=== PATIENT | male | born 1960 | race Caucasian/White ===

== ENCOUNTER 2018-03-20 08:10 | Day surgery (SDC) | payer OTHER ==
[~2018-03-20] VITALS: Ht 172.7 cm; Wt 113.4 kg
[2018-03-20] MEDS ORDERED: CEFAZOLIN SODIUM 1 GM/D5W PM 50 ML IV ONE (09:05)
[2018-03-20] MEDS ORDERED: PROPOFOL 200 MG/20 ML VIAL IV ONE (09:54)
[2018-03-20] MEDS ORDERED: ONDANSETRON 4 MG/2 ML VIAL ONE (09:54)
[2018-03-20] MEDS ORDERED: DEXAMETHASONE 4 MG/ML VIAL ONE (09:54)
[2018-03-20] MEDS ORDERED: SEVOFLURANE 250 ML BTL INH ONE (09:54)
[2018-03-20] MEDS ORDERED: fentaNYL 0.05 MG/ML VIAL ONE (10:00)
[2018-03-20] MEDS ORDERED: MEPERIDINE 50 MG/ML SYR ONE (10:00)
[2018-03-20] MEDS ORDERED: MIDAZOLAM 2 MG/2 ML VIAL ONE (10:00)
[2018-03-20] MEDS ORDERED: LACTATED RINGERS 1,000 ML IV SCH (10:26)
[2018-03-20] MEDS ORDERED: ONDANSETRON 4 MG/2 ML VIAL IVP PRN (10:30)
[2018-03-20] MEDS ORDERED: MEPERIDINE 25 MG/ML SYR IVP PRN (10:30)
[2018-03-20] MEDS ORDERED: diphenhydrAMINE 50 MG/ML VIAL IVP PRN (10:30)
[2018-03-20] MEDS ORDERED: HYDROmorphone 1 MG/ML AMP IVP PRN ×2 (10:30→11:35)
[2018-03-20] MEDS: BUPIVACAINE-MPF/EPI 0.25% 30 ML VIAL INJ ONE (10:40)
[2018-03-20] MEDS ORDERED: BUPIVACAINE-MPF 0.5% 30 ML VIAL INJ ONE (11:02)
[2018-03-20] MEDS ORDERED: LIDOCAINE 2% 100 MG/5 ML UJET TP ONE (11:14)
[2018-03-20] MEDS ORDERED: NACL 0.9% 1,000 ML IV SCH (11:31)
[2018-03-20] MEDS ORDERED: MORPHINE SULFATE 4 MG/ML SYR IV PRN (11:35)
[2018-03-20] MEDS ORDERED: MORPHINE SULFATE 2 MG/ML SYR IVP PRN (11:35)
[2018-03-20] MEDS ORDERED: ONDANSETRON 4 MG/2 ML VIAL IV PRN (11:35)
[2018-03-20] MEDS ORDERED: HYDROcodone/APAP 5/325 MG 1 TAB TAB PO PRN (11:35)
== END 2018-03-20 12:50 | disposition home or self-care (01) ==
LOC: MOR 08:10 → MMU 08:11 → MOR 12:50
PROVIDERS: ATTEND Surgery
DX: K60.5 Anorectal fistula (principal); D12.2 Benign neoplasm of ascending colon; K57.30 Diverticulosis of large intestine without perforation or abscess without bleeding; E66.9 Obesity, unspecified; Z68.30 Body mass index [BMI] 30.0-30.9, adult
CPT/HCPCS: 45380; 46270; 71045; J0690; J1100; J2175; J2250; J2405; J2704; J3010; J3490; J7030; J7120

== ENCOUNTER 2018-05-28 06:21 | Day surgery (SDC) | payer OTHER ==
[~2018-05-28] VITALS: Ht 172.7 cm; Wt 113.4 kg
[2018-05-28] MEDS ORDERED: BUPIVACAINE-MPF/EPI 0.25% 30 ML VIAL INJ ONE (07:38)
[2018-05-28] MEDS ORDERED: LIDOCAINE/EPI MPF 1%1:200000 30 ML VIAL INJ ONE (07:38)
[2018-05-28] MEDS ORDERED: LIDOCAINE 2% 100 MG/5 ML SYR IVP ONE (07:39)
[2018-05-28] MEDS ORDERED: SEVOFLURANE 250 ML BTL INH ONE (07:39)
[2018-05-28] MEDS ORDERED: PROPOFOL 200 MG/20 ML VIAL IV ONE (07:39)
[2018-05-28] MEDS ORDERED: MIDAZOLAM 2 MG/2 ML VIAL ONE (07:43)
[2018-05-28] MEDS ORDERED: fentaNYL 0.05 MG/ML VIAL ONE (07:44)
[2018-05-28] MEDS ORDERED: HYDROmorphone 1 MG/ML AMP IVP PRN ×2 (08:10→09:20)
[2018-05-28] MEDS ORDERED: ONDANSETRON 4 MG/2 ML VIAL IVP PRN (08:10)
[2018-05-28] MEDS ORDERED: MORPHINE SULFATE 4 MG/ML SYR IV PRN (09:20)
[2018-05-28] MEDS ORDERED: MORPHINE SULFATE 2 MG/ML SYR IVP PRN (09:20)
[2018-05-28] MEDS ORDERED: HYDROcodone/APAP 5/325 MG 1 TAB TAB PO PRN (09:20)
[2018-05-28] MEDS ORDERED: ONDANSETRON 4 MG/2 ML VIAL IV PRN (09:20)
== END 2018-05-28 11:30 | disposition home or self-care (01) ==
LOC: MDS 06:21 → MMU 06:22 → EDUNIT# 07:30 → MDS 11:30
PROVIDERS: ATTEND Surgery
DX: D17.22 Benign lipomatous neoplasm of skin and subcutaneous tissue of left arm (principal); D17.1 Benign lipomatous neoplasm of skin and subcutaneous tissue of trunk; E66.9 Obesity, unspecified; F17.210 Nicotine dependence, cigarettes, uncomplicated; J45.909 Unspecified asthma, uncomplicated; I25.119 Atherosclerotic heart disease of native coronary artery with unspecified angina pectoris; D64.9 Anemia, unspecified; E11.9 Type 2 diabetes mellitus without complications; K21.9 Gastro-esophageal reflux disease without esophagitis; F03.90 Unspecified dementia, unspecified severity, without behavioral disturbance, psychotic disturbance, mood disturbance, and anxiety; Z68.38 Body mass index [BMI] 38.0-38.9, adult; Z86.73 Personal history of transient ischemic attack (TIA), and cerebral infarction without residual deficits
CPT/HCPCS: 21552; 24071; 25071; 71045; 88304; 93005; J0690; J2001; J2250; J2704; J3010; J3490; J7060; J7120

== ENCOUNTER 2018-07-17 09:04 | Day surgery (SDC) | payer OTHER ==
[~2018-07-17] VITALS: Ht 170.2 cm; Wt 116.6 kg
[2018-07-17] MEDS ORDERED: PROPOFOL 200 MG/20 ML VIAL IV ONE (11:50)
[2018-07-17] MEDS ORDERED: SEVOFLURANE 250 ML BTL INH ONE (11:50)
[2018-07-17] MEDS ORDERED: DEXAMETHASONE 4 MG/ML VIAL ONE (11:50)
[2018-07-17] MEDS ORDERED: ONDANSETRON 4 MG/2 ML VIAL ONE (11:50)
[2018-07-17] MEDS ORDERED: MIDAZOLAM 2 MG/2 ML VIAL ONE (11:57)
[2018-07-17] MEDS ORDERED: MEPERIDINE 50 MG/ML SYR ONE (11:57)
[2018-07-17] MEDS ORDERED: fentaNYL 0.05 MG/ML VIAL ONE (11:57)
[2018-07-17] MEDS ORDERED: BUPIVACAINE-MPF/EPI 0.25% 30 ML VIAL INJ ONE (12:02)
[2018-07-17] MEDS ORDERED: ONDANSETRON 4 MG/2 ML VIAL IV PRN (12:45)
[2018-07-17] MEDS ORDERED: HYDROcodone/APAP 5/325 MG 1 TAB TAB PO PRN (12:45)
[2018-07-17] MEDS ORDERED: MORPHINE SULFATE 2 MG/ML SYR IVP PRN (12:45)
[2018-07-17] MEDS ORDERED: HYDROmorphone 1 MG/ML AMP IVP PRN ×2 (12:45→12:50)
[2018-07-17] MEDS ORDERED: ACETAMINOPHEN 325 MG TAB PO PRN (12:45)
[2018-07-17] MEDS ORDERED: MORPHINE SULFATE 4 MG/ML SYR IV PRN (12:45)
[2018-07-17] MEDS ORDERED: LACTATED RINGERS 1,000 ML IV SCH (12:47)
[2018-07-17] MEDS ORDERED: ONDANSETRON 4 MG/2 ML VIAL IVP PRN (12:50)
[2018-07-17] MEDS ORDERED: MEPERIDINE 25 MG/ML SYR IVP PRN (12:50)
[2018-07-17] MEDS ORDERED: diphenhydrAMINE 50 MG/ML VIAL IVP PRN (12:50)
== END 2018-07-17 14:10 | disposition home or self-care (01) ==
LOC: MMU 09:04 → MDS 09:04
PROVIDERS: ATTEND Surgery
DX: D17.21 Benign lipomatous neoplasm of skin and subcutaneous tissue of right arm (principal); D17.1 Benign lipomatous neoplasm of skin and subcutaneous tissue of trunk; E66.9 Obesity, unspecified; J45.909 Unspecified asthma, uncomplicated; E11.9 Type 2 diabetes mellitus without complications; Z68.41 Body mass index [BMI] 40.0-44.9, adult; I25.10 Atherosclerotic heart disease of native coronary artery without angina pectoris; F17.210 Nicotine dependence, cigarettes, uncomplicated; Z98.890 Other specified postprocedural states; Z86.73 Personal history of transient ischemic attack (TIA), and cerebral infarction without residual deficits; Z79.899 Other long term (current) drug therapy
CPT/HCPCS: 22902; 22903; 25071; 71045; 88304; J0690; J1100; J2250; J2405; J2704; J3010; J3490; J7060; J7120; J2175

== ENCOUNTER 2018-09-03 11:27 | Emergency (ER) | payer OTHER ==
[~2018-09-03] VITALS: Ht 175.3 cm; Wt 113.4 kg
[2018-09-03 11:41] VITALS: BP 116/80
--- NOTE | 2018-09-03 11:45 | NUR ---
PT TAKEN IN WHEEL CHAIR TO ER BED 10
[2018-09-03] MEDS ORDERED: BACL10TA4 PO (11:50)
[2018-09-03] MEDS ORDERED: IBUP200C97 PO (11:50)
[2018-09-03] MEDS ORDERED: CARI350T PO (11:50)
[2018-09-03] MEDS ORDERED: HYDR-5092 PO (11:50)
[2018-09-03] MEDS ORDERED: NAPR-54 PO (11:50)
[2018-09-03] MEDS ORDERED: TRAZ-343 PO (11:50)
--- NOTE | 2018-09-03 11:50 | NUR ---
PATIENT PRESENTS TO ED WITH C/O ABDOMINAL PRESSURE TYPE PAIN WITH SOB X2 WKS, GETTING WORSE TODAY, REPORT N/V/D, HX--DEPRESSION, LOWER BACK PAIN . AAOX4 WITH EVEN AND STEADY GAIT; LUNGS CLEAR BL; HR EVEN AND REGULAR;DENIES N/V/D; SKIN IS PINK/WARM/DRY; PATIENT STATES PAIN OF 10/10 AT THIS TIME; VSS; PATIENT POSITIONED FOR COMFORT; HOB ELEVATED; BEDRAILS UP X2; BED DOWN. ER MD MADE AWARE OF PT STATUS.
[2018-09-03] MEDS ORDERED: NACL 0.9% 1,000 ML IV SCH (12:11)
[2018-09-03] MEDS ORDERED: KETOROLAC 15 MG/ML VIAL IVP ONE (12:15)
[2018-09-03] MEDS ORDERED: PANTOPRAZOLE 40 MG INJ VIAL IVP ONE (12:15)
[2018-09-03] MEDS ORDERED: ONDANSETRON 4 MG/2 ML VIAL IVP ONE (12:15)
[2018-09-03 12:39] LABS: BASOPHILS # (AUTO) 0.1 K/uL (0.00-0.22); BASOPHILS % (AUTO) 1.4 % (0.0-2.0); EOSINOPHILS # (AUTO) 0.2 K/uL (0-0.4); EOSINOPHILS % (AUTO) 2.1 % (0.0-4.0); HEMATOCRIT 37.1 % (36-52); HEMOGLOBIN 12.6 g/dL (12.0-18.0); LYMPHOCYTES # (AUTO) 1.1 K/uL (2.0-11.5); LYMPHOCYTES % (AUTO) 13.5 % (20.5-51.1); MEAN CORPUSCULAR HEMOGLOBIN 30 pg (27-31); MEAN CORPUSCULAR HGB CONC 34 g/dL (33-37); MEAN CORPUSCULAR VOLUME 89.2 fL (80-94); MONOCYTES # (AUTO) 0.6 K/uL (0.8-1.0); MONOCYTES % (AUTO) 7.4 % (1.7-9.3); NEUTROPHILS # (AUTO) 5.9 K/uL (1.8-7.7); NEUTROPHILS % (AUTO) 75.6 % (42.2-75.2); PLATELET COUNT (AUTO) 336 K/uL (140-450); RED BLOOD CELL COUNT(AUTO) 4.16 MIL/uL (4.20-6.10); RED CELL DISTRIBUTION WIDTH 12.8 % (11.6-13.7); WHITE BLOOD COUNT (AUTO) 7.9 K/uL (4.8-10.8)
[2018-09-03 13:05] LABS: APPEARANCE,URINE CLEAR (CLEAR); BILIRUBIN,URINE NEGATIVE (NEGATIVE); BLOOD, URINE NEGATIVE (NEGATIVE); COLOR,URINE YELLOW (YELLOW); LEUKOCYTE ESTERASE ,URINE NEGATIVE (NEGATIVE); NITRITE, URINE NEGATIVE (NEGATIVE); PH,URINE 7.5 (5.0-9.0); UGLUCOSE NEGATIVE (NEGATIVE)
[2018-09-03 13:09] LABS: ALBUMIN 3.4 g/dL (3.4-5.0); CREATININE 0.8 mg/dL (0.7-1.3); POTASSIUM 4.2 mmol/L (3.5-5.1); TOTAL BILIRUBIN 0.8 mg/dL (0.0-1.0)
[2018-09-03 13:15] LABS: ANION GAP 11.9 (8-16); CARBON DIOXIDE 28.3 mmol/L (21-32)
[2018-09-03] MEDS ORDERED: MORPHINE SULFATE 4 MG/ML SYR IVP ONE (13:50)
[2018-09-03 14:36] VITALS: BP 122/83
--- NOTE | 2018-09-03 14:36 | NUR ---
Patient discharged with v/s stable. Written and verbal after care instructions given and explained. Patient alert, oriented and verbalized understanding of instructions. Ambulatory with steady gait. All questions addressed prior to discharge. ID band removed. Patient advised to follow up with PMD. Rx of OMEPRAZOLE, ZOFRAN given. Patient educated on indication of medication including possible reaction and side effects. Opportunity to ask questions provided and answered.
== END 2018-09-03 14:36 | disposition home or self-care (01) ==
LOC: MED 11:27
DX: R10.13 Epigastric pain (principal); R11.2 Nausea with vomiting, unspecified; R19.7 Diarrhea, unspecified; M54.9 Dorsalgia, unspecified; F32.9 Major depressive disorder, single episode, unspecified; Z79.1 Long term (current) use of non-steroidal anti-inflammatories (NSAID); Z79.891 Long term (current) use of opiate analgesic; Z79.899 Other long term (current) drug therapy; Z98.890 Other specified postprocedural states
CPT/HCPCS: 36415; 76705; 80053; 81003; 83690; 84484; 85025; 93005; 96361; 96374; 96375; 99284; C9113; J1885; J2270; J2405; J7030; Q0092

== ENCOUNTER 2019-07-16 07:20 | Day surgery (SDC) | payer OTHER ==
[~2019-07-16] VITALS: Ht 172.7 cm; Wt 117.9 kg
[~2019-07-16 07:20] MED LIST: BACL10TA4 PO; CARI350T PO; HYDR-5092 PO; IBUP200C97 PO; NAPR-54 PO; TRAZ-343 PO
[2019-07-16] MEDS ORDERED: LIDOCAINE 1% 500 MG/50 ML VIAL ONE (07:23)
[2019-07-16] MEDS ORDERED: BUPIVACAINE-MPF/EPI 0.25% 30 ML VIAL INJ ONE (07:23)
[2019-07-16] MEDS ORDERED: MIDAZOLAM 2 MG/2 ML VIAL ONE (09:09)
[2019-07-16] MEDS ORDERED: fentaNYL 0.05 MG/ML VIAL ONE (09:10)
[2019-07-16] MEDS ORDERED: MIDAZOLAM 2 MG/2 ML VIAL IVP ONE (09:27)
[2019-07-16] MEDS ORDERED: fentaNYL 0.05 MG/ML VIAL IVP ONE (09:29)
[2019-07-16] MEDS ORDERED: HYDROmorphone 1 MG/ML AMP IVP PRN (10:20)
[2019-07-16] MEDS ORDERED: ONDANSETRON 4 MG/2 ML VIAL IVP PRN (10:20)
[2019-07-16] MEDS ORDERED: MORPHINE SULFATE 4 MG/ML SYR IV PRN (10:20)
[2019-07-16] MEDS ORDERED: HYDROcodone/APAP 5/325 MG 1 TAB TAB PO PRN (10:20)
[2019-07-16] MEDS ORDERED: MORPHINE SULFATE 2 MG/ML SYR IVP PRN (10:20)
== END 2019-07-16 11:00 | disposition home or self-care (01) ==
LOC: MDS 07:20 → MMU 07:25 → MDS 11:00
PROVIDERS: ATTEND Surgery
DX: D17.1 Benign lipomatous neoplasm of skin and subcutaneous tissue of trunk (principal); D17.21 Benign lipomatous neoplasm of skin and subcutaneous tissue of right arm
CPT/HCPCS: 22903; 25071; 25075; 88304; J0690; J2001; J2250; J3010; J3490; J7060; J7120

== ENCOUNTER 2021-09-05 20:02 | Emergency (ER) | payer OTHER ==
[~2021-09-05] VITALS: Ht 175.3 cm; Wt 116.6 kg
[2021-09-05 20:20] VITALS: BP 115/71
--- NOTE | 2021-09-05 20:24 | NUR ---
PT GIVEN URINE CUP AND SENT BACK TO LOBBY.
--- NOTE | 2021-09-05 21:30 | NUR ---
SEEN AND EXMINED BY SONIYA WITH ORDERS AND CARRIED OUT
[2021-09-05] MEDS ORDERED: KETOROLAC 60 MG/2 ML VIAL IM ONE (21:35)
[2021-09-05] MEDS ORDERED: ONDANSETRON 4 MG ODT PO ONE (21:35)
--- NOTE | 2021-09-05 21:40 | NUR ---
MEICATED PER [facility] ORDER, TOLERATED WELL
[2021-09-05] MEDS ORDERED: DICYCLOMINE HCL LIQUID 20 MG, ALUMINUM HYD/MAG/SIMETHICONE 30 ML, LIDOCAINE VISCOUS 2% ... PO ONE ×3 (22:45)
[2021-09-05] MEDS ORDERED: ALUMINUM HYD/MAG/SIMETHICONE 30 ML UDC ONE (22:52)
[2021-09-05] MEDS ORDERED: DICYCLOMINE HCL LIQUID 10 MG/5 ML UDC ONE (22:53)
[2021-09-05] MEDS ORDERED: ONDA8TAB87 PO (23:23)
[2021-09-05] MEDS ORDERED: OMEP40EC24 PO (23:23)
[2021-09-05] MEDS ORDERED: IBUP-2213 PO (23:23)
[2021-09-05] MEDS ORDERED: DIPH25TA53 PO (23:23)
[2021-09-05 23:30] VITALS: BP 120/79
--- NOTE | 2021-09-05 23:30 | NUR ---
Patient discharged with v/s stable. Written and verbal after care instructions given and explained. Patient alert, oriented and verbalized understanding of instructions. Ambulatory with steady gait. All questions addressed prior to discharge. ID band removed. Patient advised to follow up with PMD. Rx of BENADRYL,IBUPROFEN,PRILOSEC,ZOFRAN given. Patient educated on indication of medication including possible reaction and side effects. Opportunity to ask questions provided and answered.
== END 2021-09-05 23:30 | disposition home or self-care (01) ==
LOC: MED 20:02
DX: R10.13 Epigastric pain (principal); R11.2 Nausea with vomiting, unspecified; Z79.899 Other long term (current) drug therapy
CPT/HCPCS: 96372; 99283; J1885; Q0162

== ENCOUNTER 2023-07-17 09:54 | Inpatient (IN) | payer OTHER ==
[~2023-07-17] VITALS: Ht 175.3 cm; Wt 113.4 kg
[~2023-07-17 09:54] MED LIST changes: +DIPH25TA53 PO; +IBUP-2213 PO; +OMEP40EC24 PO; +ONDA8TAB87 PO
[2023-07-17 10:10] VITALS: BP 135/82; PULSE 86; RESP 20; TEMP 97; O2SAT 98
[2023-07-17] MEDS ORDERED: LORazepam 2 MG/ML VIAL ONE (10:47)
[2023-07-17] MEDS ORDERED: ASPIRIN 325 MG TABEC PO ONE (10:49)
[2023-07-17 10:52] LABS: BASOPHILS # (AUTO) 0.1 K/uL (0.00-0.22); BASOPHILS % (AUTO) 0.6 % (0.0-2.0); EOSINOPHILS # (AUTO) 0.2 K/uL (0-0.4); EOSINOPHILS % (AUTO) 1.6 % (0.0-4.0); HEMATOCRIT 38.8 % (36-52); HEMOGLOBIN 13.8 g/dL (12.0-18.0); LYMPHOCYTES # (AUTO) 1.9 K/uL (2.0-11.5); LYMPHOCYTES % (AUTO) 19.4 % (20.5-51.1); MEAN CORPUSCULAR HEMOGLOBIN 31 pg (27-31); MEAN CORPUSCULAR HGB CONC 36 g/dL (33-37); MEAN CORPUSCULAR VOLUME 87.4 fL (80-94); MONOCYTES % (AUTO) 9.8 % (1.7-9.3); NEUTROPHILS # (AUTO) 6.8 K/uL (1.8-7.7); NEUTROPHILS % (AUTO) 68.6 % (42.2-75.2); PLATELET COUNT (AUTO) 282 K/uL (140-450); RED BLOOD CELL COUNT(AUTO) 4.43 MIL/uL (4.20-6.10); RED CELL DISTRIBUTION WIDTH 11.7 % (11.6-13.7); WHITE BLOOD COUNT (AUTO) 9.9 K/uL (4.8-10.8)
[2023-07-17] MEDS: NITROGLYCERIN 0.4 MG TAB SL ONE (10:54)
[2023-07-17] MEDS: LORazepam 2 MG/ML VIAL IVP ONE (11:02)
[2023-07-17] MEDS: ASPIRIN 325 MG TABEC PO SCH (11:04)
[2023-07-17 11:10] LABS: INR 1.11 (0.8-1.2); PROTHROMBIN TIME 11.5 secs (10.8-13.4)
[2023-07-17 11:19] LABS: ANION GAP 15.4 (8-16); CALCIUM 8.9 mg/dL (8.5-10.1); CREATININE 0.8 mg/dL (0.6-1.3); POTASSIUM 3.4 mmol/L (3.5-5.1)
[2023-07-17 11:32] LABS: CREATINE KINASE, TOTAL 588 U/L (39-308)
[2023-07-17 12:02] LABS: ALANINE AMINOTRANSFERASE 58 U/L (12-78); ALBUMIN 3.5 g/dL (3.4-5.0); ALKALINE PHOSPHATASE 56 U/L (50-136); ASPARTATE AMINOTRANSFERASE 44 U/L (15-37); BILIRUBIN,DIRECT 0.4 mg/dL (0.0-0.3); TOTAL BILIRUBIN 4.1 mg/dL (0.0-1.0); TOTAL PROTEIN, SERUM 8.2 g/dL (6.4-8.2)
[2023-07-17] MEDS ORDERED: MAG SULF 2000 MG/WATER PREMIX 50 ML IV PRN (13:20)
[2023-07-17] MEDS ORDERED: ONDANSETRON 4 MG/2 ML VIAL IVP PRN (13:20)
[2023-07-17] MEDS ORDERED: KCL 20 MEQ IN 100 mL PREMIX 200 ML IV PRN (13:20)
[2023-07-17] MEDS ORDERED: MAGNESIUM OXIDE 400 MG TAB PO PRN (13:20)
[2023-07-17] MEDS ORDERED: ACETAMINOPHEN 325 MG TAB PO PRN (13:20)
[2023-07-17] MEDS ORDERED: HYDROcodone/APAP 5/325 MG 1 TAB TAB PO PRN (13:20)
[2023-07-17 15:53] LABS: APPEARANCE,URINE CLEAR (CLEAR); BILIRUBIN,URINE 1+ (NEGATIVE); BLOOD, URINE TRACE-I (NEGATIVE); COLOR,URINE YELLOW (YELLOW); LEUKOCYTE ESTERASE ,URINE NEGATIVE (NEGATIVE); NITRITE, URINE NEGATIVE (NEGATIVE); PH,URINE 6.5 (5.0-9.0); PROTEIN,URINE TRACE (NEGATIVE); UGLUCOSE NEGATIVE (NEGATIVE)
[2023-07-17 16:01] LABS: AMPHETAMINE, URINE NEGATIVE ng/ml (NEG <=1000); BARBITURATE, URINE NEGATIVE ng/ml (NEG <=200); BENZODIAZEPINE, URINE NEGATIVE ng/mL (NEG <=200); CANNABINOID, URINE NEGATIVE ng/mL (NEG <=50); COCAINE, URINE POSITIVE ng/mL (NEG <=300); OPIATE, URINE NEGATIVE ng/mL (NEG <=2000); PHENCYCLIDINE SCREEN,URINE NEGATIVE ng/mL (NEG <=25)
[2023-07-17 16:12] LABS: BACTERIA,URINE 0-2 /HPF (None Seen); ICTOTEST POSITIVE (NEGATIVE); MUCUS,URINE None Seen /LPF (None Seen); RBC,URINE 0-5 /HPF (0-5); SQUAMOUS EPITHELIAL CELL,UR 0-3 (FEW) /LPF (0-3 (FEW)); WBC,URINE 0 /HPF (0-5)
[2023-07-18] MEDS: MORPHINE SULFATE 4 MG/ML SYR IVP PRN (04:23)
[2023-07-18 07:14] LABS: BASOPHILS % (AUTO) 0.6 % (0.0-2.0); EOSINOPHILS # (AUTO) 0.2 K/uL (0-0.4); EOSINOPHILS % (AUTO) 3.3 % (0.0-4.0); HEMATOCRIT 39.4 % (36-52); HEMOGLOBIN 13.7 g/dL (12.0-18.0); LYMPHOCYTES % (AUTO) 26.1 % (20.5-51.1); MEAN CORPUSCULAR HEMOGLOBIN 31 pg (27-31); MEAN CORPUSCULAR HGB CONC 35 g/dL (33-37); MEAN CORPUSCULAR VOLUME 88.1 fL (80-94); MONOCYTES # (AUTO) 0.7 K/uL (0.8-1.0); NEUTROPHILS # (AUTO) 4.5 K/uL (1.8-7.7); PLATELET COUNT (AUTO) 276 K/uL (140-450); RED BLOOD CELL COUNT(AUTO) 4.47 MIL/uL (4.20-6.10); RED CELL DISTRIBUTION WIDTH 11.8 % (11.6-13.7); WHITE BLOOD COUNT (AUTO) 7.5 K/uL (4.8-10.8)
[2023-07-18 07:34] LABS: ALBUMIN 3.1 g/dL (3.4-5.0); ANION GAP 11.2 (8-16); CALCIUM 8.4 mg/dL (8.5-10.1); CARBON DIOXIDE 28.2 mmol/L (21-32); CREATININE 0.7 mg/dL (0.6-1.3); POTASSIUM 3.4 mmol/L (3.5-5.1); TOTAL BILIRUBIN 2.4 mg/dL (0.0-1.0); TOTAL PROTEIN, SERUM 7.6 g/dL (6.4-8.2)
[2023-07-18 11:15] VITALS: BP 124/81; PULSE 66; RESP 24; TEMP 97.6; O2SAT 97
[2023-07-18 12:00] VITALS: PULSE 74
[2023-07-18] MEDS: POTASSIUM CHLORIDE 10 MEQ TABER PO PRN (12:46)
[2023-07-18 16:00] VITALS: BP 114/77; PULSE 65; PULSE 76; RESP 24; TEMP 98.7; O2SAT 97
[2023-07-18 20:00] VITALS: BP 117/77; PULSE 73; PULSE 95; RESP 20; TEMP 98.6; O2SAT 97
[2023-07-19] VITALS (7 sets, daily range): BP systolic 98–121; BP diastolic 62–83; PULSE 48–89; RESP 18–20; TEMP 97.6–98.2; O2SAT 95–97
[2023-07-19 07:05] LABS: BASOPHILS % (AUTO) 0.4 % (0.0-2.0); EOSINOPHILS # (AUTO) 0.4 K/uL (0-0.4); EOSINOPHILS % (AUTO) 4.9 % (0.0-4.0); HEMATOCRIT 40.9 % (36-52); HEMOGLOBIN 14.3 g/dL (12.0-18.0); LYMPHOCYTES # (AUTO) 2.4 K/uL (2.0-11.5); LYMPHOCYTES % (AUTO) 33.3 % (20.5-51.1); MEAN CORPUSCULAR HEMOGLOBIN 31 pg (27-31); MEAN CORPUSCULAR HGB CONC 35 g/dL (33-37); MEAN CORPUSCULAR VOLUME 87.3 fL (80-94); MONOCYTES # (AUTO) 0.8 K/uL (0.8-1.0); MONOCYTES % (AUTO) 10.7 % (1.7-9.3); NEUTROPHILS # (AUTO) 3.7 K/uL (1.8-7.7); NEUTROPHILS % (AUTO) 50.7 % (42.2-75.2); PLATELET COUNT (AUTO) 284 K/uL (140-450); RED BLOOD CELL COUNT(AUTO) 4.68 MIL/uL (4.20-6.10); RED CELL DISTRIBUTION WIDTH 11.5 % (11.6-13.7); WHITE BLOOD COUNT (AUTO) 7.2 K/uL (4.8-10.8)
[2023-07-19 07:25] LABS: ALBUMIN 3.1 g/dL (3.4-5.0); ANION GAP 12.2 (8-16); CALCIUM 8.6 mg/dL (8.5-10.1); CARBON DIOXIDE 26.8 mmol/L (21-32); CREATININE 0.7 mg/dL (0.6-1.3); MAGNESIUM 1.9 mg/dL (1.8-2.4); TOTAL BILIRUBIN 1.7 mg/dL (0.0-1.0); TOTAL PROTEIN, SERUM 7.8 g/dL (6.4-8.2)
[2023-07-19] MEDS ORDERED: NITR0.4T95 SL (14:07)
[2023-07-19] MEDS: MELATONIN 3 MG TAB PO PRN (21:22)
[2023-07-20] VITALS: BP 115/87; PULSE 65; PULSE 77; RESP 18; TEMP 97.4; O2SAT 98
[2023-07-20 04:00] VITALS: BP 119/85; PULSE 60; PULSE 79; RESP 20; TEMP 97.3; O2SAT 97
[2023-07-20 06:44] LABS: BASOPHILS # (AUTO) 0.1 K/uL (0.00-0.22); BASOPHILS % (AUTO) 1.6 % (0.0-2.0); EOSINOPHILS # (AUTO) 0.2 K/uL (0-0.4); EOSINOPHILS % (AUTO) 4.4 % (0.0-4.0); HEMATOCRIT 39.5 % (36-52); HEMOGLOBIN 14.2 g/dL (12.0-18.0); LYMPHOCYTES # (AUTO) 1.6 K/uL (2.0-11.5); LYMPHOCYTES % (AUTO) 28.9 % (20.5-51.1); MEAN CORPUSCULAR HEMOGLOBIN 31 pg (27-31); MEAN CORPUSCULAR HGB CONC 36 g/dL (33-37); MEAN CORPUSCULAR VOLUME 86.6 fL (80-94); MONOCYTES # (AUTO) 0.6 K/uL (0.8-1.0); NEUTROPHILS % (AUTO) 54.1 % (42.2-75.2); PLATELET COUNT (AUTO) 267 K/uL (140-450); RED BLOOD CELL COUNT(AUTO) 4.56 MIL/uL (4.20-6.10); RED CELL DISTRIBUTION WIDTH 11.7 % (11.6-13.7); WHITE BLOOD COUNT (AUTO) 5.5 K/uL (4.8-10.8)
[2023-07-20 07:28] LABS: MAGNESIUM 1.9 mg/dL (1.8-2.4)
[2023-07-20 07:34] LABS: ANION GAP 15.8 (8-16); POTASSIUM 3.6 mmol/L (3.5-5.1)
[2023-07-20 07:35] LABS: ALBUMIN 3.3 g/dL (3.4-5.0); CALCIUM 8.9 mg/dL (8.5-10.1); CARBON DIOXIDE 25.8 mmol/L (21-32); CREATININE 0.7 mg/dL (0.6-1.3); TOTAL BILIRUBIN 1.9 mg/dL (0.0-1.0); TOTAL PROTEIN, SERUM 7.1 g/dL (6.4-8.2)
[2023-07-20 08:00] VITALS: BP 99/69; PULSE 61; PULSE 62; RESP 18; TEMP 98.1; O2SAT 92
[2023-07-20 12:00] VITALS: BP 119/82; PULSE 70; RESP 18; TEMP 97.4; O2SAT 93
== END 2023-07-20 15:15 | disposition home or self-care (01) | DRG 203 ==
LOC: MED 09:54 → MTU 13:23 → OBSVTOIN 13:23 → MTU 07-18 06:09
PROVIDERS: ADMIT Hospitalist; ATTEND Hospitalist
DX: R07.9 Chest pain, unspecified (principal); R65.11 Systemic inflammatory response syndrome (SIRS) of non-infectious origin with acute organ dysfunction; F14.19 Cocaine abuse with unspecified cocaine-induced disorder; T50.905A Adverse effect of unspecified drugs, medicaments and biological substances, initial encounter; F15.19 Other stimulant abuse with unspecified stimulant-induced disorder; I10 Essential (primary) hypertension; F39 Unspecified mood [affective] disorder; G89.29 Other chronic pain
CPT/HCPCS: 36415; 71045; 80048; 80053; 80076; 80305; 81001; 82550; 82553; 83735; 83880; 84484; 85025; 85610; 85730; 87081; 93005; 96374; 99285; G0378; J1644; J2060; J2270; Q0092